=== PATIENT | female | born 1995 | race Caucasian/White ===

== ENCOUNTER 2023-07-16 10:36 | Emergency (ER) | payer OTHER ==
[~2023-07-16] VITALS: Ht 157.5 cm; Wt 69.4 kg
[2023-07-16 10:42] VITALS: BP 110/68; PULSE 94; RESP 16; TEMP 97.1; O2SAT 100
[2023-07-16 12:22] LABS: APPEARANCE,URINE CLEAR (CLEAR); BILIRUBIN,URINE NEGATIVE (NEGATIVE); BLOOD, URINE 3+ (NEGATIVE); COLOR,URINE YELLOW (YELLOW); LEUKOCYTE ESTERASE ,URINE 2+ (NEGATIVE); NITRITE, URINE POSITIVE (NEGATIVE); PROTEIN,URINE 2+ (NEGATIVE); UGLUCOSE NEGATIVE (NEGATIVE); UROBILINOGEN,URINE 0.2 EU/dL (0.2 - 1)
[2023-07-16 12:23] VITALS: O2SAT 100
[2023-07-16 12:34] LABS: RBC,URINE 11-20 (MOD) /HPF (0-5)
[2023-07-16 12:35] LABS: BACTERIA,URINE 10-30 (MOD) /HPF (None Seen); SQUAMOUS EPITHELIAL CELL,UR 0-3 (FEW) /LPF (0-3 (FEW))
[2023-07-16] MEDS ORDERED: PYR100 PO (13:00)
[2023-07-16] MEDS ORDERED: CEPH-588 PO (13:00)
[2023-07-16 13:03] VITALS: BP 110/68; PULSE 94; RESP 16; TEMP 97.1; O2SAT 100
== END 2023-07-16 13:10 | disposition home or self-care (01) ==
LOC: MED 10:36
DX: N39.0 Urinary tract infection, site not specified (principal); Z79.899 Other long term (current) drug therapy
CPT/HCPCS: 81001; 81025; 87086; 99283